=== PATIENT | female | born 2000 | race Caucasian/White ===

== ENCOUNTER → 2025-02-25 10:27 | Outpatient (BNVA) | payer MEDICAID, SELFPAY | PROVIDERS: Visit Provider Emergency Medicine | DX: R39.9 Unspecified symptoms and signs involving the genitourinary system (principal) | CPT/HCPCS: 81000; 87086 ==

== ENCOUNTER → 2025-03-27 19:06 | Outpatient (BNVA) | payer MEDICAID, SELFPAY | DX: R39.9 Unspecified symptoms and signs involving the genitourinary system (principal) | CPT/HCPCS: 81000; 87086 ==

== ENCOUNTER 2025-05-04 17:40 | Emergency (ER) | payer MEDICAID, SELFPAY ==
--- OUTSIDE RECORDS SUMMARY | 2025-05-04 03:20 | XMS_ITS ---
Author Organization [facility] Address [address] [place] [address] Care Team Providers Care Curtain Cutter Name Role Phone Taiwo Malonelie Primary Care Provider [phone] Roy, Bertha Unavailable [phone] Allergies Allergen (clinical drug ingredient) Drug/Non Drug Allergy documented on EMR Reaction Allergy Type Onset Date Status aripiprazole Abilify Unknown Drug Allergy Acti ve Lactose Intolerance Unknown Allergy Active REASON FOR VISIT Patient to clinic with home insurance agent. Complaint of pain to left great toe. Aide reports she has been eating a lot of pork pot stickers and [place] food. Medications Medication SIG (Take, Route, Frequency, Duration) Notes Start Date End Date Status Bacitracin 500 UNIT/GM Ointment 1 application to sore toe Externally twice a day till clear; Duration: 30 days 05/04/2025 07/03/2025 Active Cephalexin 500 MG Capsule 2 caps Orally twice a day; Duration: 10 05/04/2025 05/14/2025 Active traZODone HCl 50 MG Tablet 1 tablet at b edtime as needed Orally Once a day; Duration: 30 days Active Linzess 145 MCG Capsule [address] 30 minutes before the first meal of the day on an empty stomach Orally Once a day; Duration: 30 days Active Triamcinolone Acetonide 0.1 % Cream 1 application Externally twice a day; Duration: 30 days Active Diclofenac Sodium 1 % Gel 2-4 grams to a ffected areas Externally every 6 hours as needed for pain; Duration: 30 days Active Baclofen 5 MG Tablet 1 tablet as needed Orally Twice a day as needed for pain; Duration: 30 days Active Acetaminophen 500 MG Tablet 1 tablet as needed Orally every 4 hours; Duration: 30 days Active Deep Sea Nasal [place] 0.65 % Solution as directed Nasally as needed for nasal dryness or allergies; Duration: 30 days Active Tums 500 MG Tablet Chewable 2 tablets Orally Once a day as needed for heartburn; Duration: 30 days Active Milk of Magnesia 1200 MG/15ML Suspension 30 ml Orally daily as needed for constipation; Duration: 30 days Active Ketoconazole 2 % Cream 1 application Ext ernally daily as needed for rash; Duration: 30 days Active OLANZapine 10 MG Tablet 1 tablet Orally 4 times a day as needed for severe agitation; Duration: 30 days Active Ibuprofen 400 MG Tablet 1 tablet with fo od or milk as needed Orally Three times a day; Duration: 30 days Active Ex-Lax 15 MG Tablet Chewable 1 tablet as needed Orally Once a day; Duration: 30 days Active Benztropine Mesylate 1 MG Tablet 1 tablet Orally twice a day for EPS; Duration: 30 days Active Probiotic 1-250 BILLION-MG Capsule as directed Orally; Duration: 30 days can be OTC 04/24/2025 08/22/2025 Active Zolpidem Tartrate 5 MG Tablet 1 tablet at bedtime as needed for insomnia Orally Once a day Active Daily-Kristen - Tablet 1 tablet Orally Once a day; Duration: 30 days Active Cetirizine HCl 10 MG Tablet 1 tablet Orally Once a day; Duration: 30 days Active Ayden Carbonate 300 MG Tablet 2 tablets Orally twice a day; Duration: 30 days Active Haloperidol 10 MG Tablet 1 tablet Orally 3 times a day with meals; Duration: 30 days Active Fluticasone Propionate 50 MCG/ACT Suspension 1 spray in each nostril Nasally Twice a day; Duration: 30 days Active Famotidine 20 MG Tablet 1 tablet at bedt maximilian as needed Orally Once a day; Duration: 30 days Active Levothyroxine Sodium 75 MCG Tablet 1 tablet in the morning on an empty stomach Orally Once a day; Duration: 30 days Active Pantoprazole Sodium 40 MG Tablet Delayed Release 1 tablet 1/2 to 1 hour before morning meal Orally Once a day; Duration: 30 days Active QUEtiapine Fumarate 200 MG Tablet 1 tablet Orally Once a day; Duration: 30 days Active Polyethylene Glycol 3350 17 GM/SCOOP Powder 1 scoop Orally twice a day; Duration: 30 days Active Social History Tobacco Use: Social History Observation Description Date Details (start date - stop date) Never Smoker NA - NA Social History Tobacco Use: Social Info Question Answer Notes Tobacco Control (Standard) Tobacco use: Nonsmoker Vital Signs Temperature 97.7 degrees Fahrenheit 05/04/20 25 Blood pressure systolic 128 mm Hg 05/04/20 25 Blood pressure diastolic 84 mm Hg 025 Heart Rate 105 /min 05/04/2025 Respiratory Rate 20 /min 05/04/2025 Height 67 in 05/04/2025 Weight 261 lbs 05/04/2025 BMI 40.87 kg/m2 05/04/2025 Oximetry 99 % 05/04/2025 Height-cm 170.18 cm 05/04/2025 Weight-kg 118.39 kg 05/04/2025 Encounters Encounter Location Date Provider Diagnosis [facility] Office [address] [place] [address] 05/04/2025 [facility] Paronychia of great toe L03.039 Assessments Encounter Date Diagnosis (ICD Code) Assessment Notes Treatment Notes Treatment Clinical Notes Section Notes 05/04/2025 Paronychia of great toe (ICD-10 - L03.039) cephalexin bacitracin 05/04/2025 Other Questions asked and answered; discharged to home. Plan Of Treatment Medication Medication Name Sig Start Date Stop Date Notes Bacitracin 500 UNIT/GM Ointment 1 application to sore toe Externally twice a day till clear; Duration: 30 days 05/04/2025 07/03/2025 Cephalexin 500 MG Capsule 2 caps Orally twice a day; Duration: 10 05/04/2025 05/14/2025 Treatment Notes Assessment Notes Paronychia of great toe cephalexin bacitracin Other Questions asked and answered; discharged to home. Next Appt Details Follow Up: 1 Week, Reason: nini winchester Provider Name:Winter alvarez, 05/08/2025 09:00:00 AM, [address], [place], [address], Provider Name:Arsen Zhou, 05/15/2025 09:20:00 AM, [address], [place], [address], History and Physical Notes * HPI (History of Present Illness) Category Sub-Category Detail Notes Category Not es Provider Note patient is an alert 24 year old female known to practice and here with home care worker complains of soreness left great toe discussed with patient and caregiver; nail infection will e script cephalexin as well as topical bacitracin recheck with rachele malone next week Examination Category Sub-Category Detail Notes Category Not es General Examination GENERAL APPEARANCE: alert, w ell hydrated, in no distress, converses well HEAD: normocephalic, atrau matic EYES: PERRL; normal conjun ctiva EARS: ... NECK/THYROID: neck supple, full ra nge of motion, no JVD, without thyromegaly or masses HEART: Regular rate and rhy thm, S1 S2 normal LUNGS: clear to auscultatio n bilaterally, no wheezes, rales, or rhonchi NEUROLOGIC: alert and oriented, cerebellar function normal, cognitive exam grossly normal, gait normal SKIN: warm and dry EXTREMITIES: left great toe with increased redness; trace edema; at lateral nail edge; no exudate PSYCH: alert, oriented, cog nitive function intact, cooperative with exam, good eye contact, mood/affect full range, speech clear Progress Notes * CHALINO SHAHEDOB:[birth year] (24 yo F)Acc No.[id number]:05/04/2025 Patient: SRIRAM RDZ Provider: Andrew Roy SENIOR FUNCTIONAL ANALYST :2000 A ge:24 Y S ex:Female Date:05/04/2025 Address:[address] [place], [place] [id number] Pcp:Winter Malone Check In:08:56 AM CSTCheck O ut:09:37 AM MANUFACTURING ENGINEERING TECHNICIAN Subjective: * Chief Complaints: * P atient to clinic with home insurance agent. Complaint of pain to left great toe. Aide reports she has been eating a lot of pork pot stickers and [place] food. * HPI: P rico Note: patient is an alert 24 year old female known to practice and here with home care worker complains of soreness left great toe discussed with patient and caregiver; nail infection will e script cephalexin as well as topical bacitracin recheck with rachele malone next week. * ROS: G eneral - Multi System: Integumentary R EPORTS left toe red; sore. * Medical History: No Medical History Documented Medical History Verified * Surgical History: cholecystectomy Surgical History verified. * Hospitalization/Major Diagno stic Procedure: Denies Past Hospitalization. * Family History: F ather: unknown. M other: unknown. F amily History Verified.. * Social History: T obacco Use: T obacco Control (Standard) T obacco use: N onsmoker S ocial History Verified. * Medications: T akingZolpidem Tartrate 5 MG Tablet 1 tablet at bedtime as needed for insomnia Orally Once a day OLANZapine 10 MG Tablet 1 tablet Orally 4 times a day as needed for severe agitation Milk of Magnesia 1200 MG/15ML Suspension 30 ml Orally daily as needed for constipation Ketoconazole 2 % Cream 1 application Externally daily as needed for rash Ibuprofen 400 MG Tablet 1 tablet with food or milk as needed Orally Three times a day Ex-Lax 15 MG Tablet Chewable 1 tablet as needed Orally Once a day Diclofenac Sodium 1 % Gel 2-4 grams to affected areas Externally every 6 hours as needed for pain Deep Sea Nasal [place] 0.65 % Solution as directed Nasally as needed for nasal dryness or allergies Tums 500 MG Tablet Chewable 2 tablets Orally Once a day as needed for heartburn Baclofen 5 MG Tablet 1 tablet as needed Orally Twice a day as needed for pain Acetaminophen 500 MG Tablet 1 tablet as needed Orally every 4 hours Linzess 145 MCG Capsule 1 capsule at least 30 minutes before the first meal of the day on an empty stomach Orally Once a day Triamcinolone Acetonide 0.1 % Cream 1 application Externally twice a day traZODone HCl 50 MG Tablet 1 tablet at bedtime as needed Orally Once a day QUEtiapine Fumarate 200 MG Tablet 1 tablet Orally Once a day Polyethylene Glycol 3350 17 GM/SCOOP Powder 1 scoop Orally twice a day Pantoprazole Sodium 40 MG Tablet Delayed Release 1 tablet 1/2 to 1 hour before morning meal Orally Once a day Ayden Carbonate 300 MG Tablet 2 tablets Orally twice a day Famotidine 20 MG Tablet 1 tablet at bedtime as needed Orally Once a day Levothyroxine Sodium 75 MCG Tablet 1 tablet in the morning on an empty stomach Orally Once a day Haloperidol 10 MG Tablet 1 tablet Orally 3 times a day with meals Fluticasone Propionate 50 MCG/ACT Suspension 1 spray in each nostril Nasally Twice a day Daily-Kristen - Tablet 1 tablet Orally Once a day Cetirizine HCl 10 MG Tablet 1 tablet Orally Once a day Benztropine Mesylate 1 MG Tablet 1 tablet Orally twice a day for EPS Probiotic 1-250 BILLION-MG Capsule as directed Orally can be OTC, stop date 08/22/2025Taking Zolpidem Tartrate 5 MG Tablet 1 tablet at bedtime as needed for insomnia Orally Once a day Taking OLANZapine 10 MG Tablet 1 tablet Orally 4 times a day as needed for severe agitation Taking Milk of Magnesia 1200 MG/15ML Suspension 30 ml Orally daily as needed for constipation Taking Ketoconazole 2 % Cream 1 application Externally daily as needed for rash Taking Ibuprofen 400 MG Tablet 1 tablet with food or milk as needed Orally Three times a day Taking Ex-Lax 15 MG Tablet Chewable 1 tablet as needed Orally Once a day Taking Diclofenac Sodium 1 % Gel 2-4 grams to affected areas Externally every 6 hours as needed for pain Taking Deep Sea Nasal [place] 0.65 % Solution as directed Nasally as needed for nasal dryness or allergies Taking Tums 500 MG Tablet Chewable 2 tablets Orally Once a day as needed for heartburn Taking Baclofen 5 MG Tablet 1 tablet as needed Orally Twice a day as needed for pain Taking Acetaminophen 500 MG Tablet 1 tablet as needed Orally every 4 hours Taking Linzess 145 MCG Capsule 1 capsule at least 30 minutes before the first meal of the day on an empty stomach Orally Once a day Taking Triamcinolone Acetonide 0.1 % Cream 1 application Externally twice a day Taking traZODone HCl 50 MG Tablet 1 tablet at bedtime as needed Orally Once a day Taking QUEtiapine Fumarate 200 MG Tablet 1 tablet Orally Once a day Taking Polyethylene Glycol 3350 17 GM/SCOOP Powder 1 scoop Orally twice a day Taking Pantoprazole Sodium 40 MG Tablet Delayed Release 1 tablet 1/2 to 1 hour before morning meal Orally Once a day Taking Ayden Carbonate 300 MG Tablet 2 tablets Orally twice a day Taking Famotidine 20 MG Tablet 1 tablet at bedtime as needed Orally Once a day Taking Levothyroxine Sodium 75 MCG Tablet 1 tablet in the morning on an empty stomach Orally Once a day Taking Haloperidol 10 MG Tablet 1 tablet Orally 3 times a day with meals Taking Fluticasone Propionate 50 MCG/ACT Suspension 1 spray in each nostril Nasally Twice a day Taking Daily-Kristen - Tablet 1 tablet Orally Once a day Taking Cetirizine HCl 10 MG Tablet 1 tablet Orally Once a day Taking Benztropine Mesylate 1 MG Tablet 1 tablet Orally twice a day for EPS Taking Probiotic 1-250 BILLION-MG Capsule as directed Orally can be OTC, stop date 08/22/2025 * Allergies: A bilifyLactose IntoleranceyesAllergies Verified. Objective: * Vitals: H t: 67 in, Wt:261lbs, Wt-k.39 kg, BMI:40.87Index, Temp:97.7F, BP:128/84mm Hg, HR:105/min, RR:20/min, Oxygen sat %:99%, O2 Source: RA, Pain scale: 6 1-10, Ht- cm: 170.18 cm. * Examination: G eneral Examination: GENERAL APPEARANCE: a lert, well hydrated, in no distress, converses well. HEAD: n ormocephalic, atraumatic. EYES: P ERRL; normal conjunctiva. EARS: . ... NECK/THYROID: n michele supple, full range of motion, no JVD, without thyromegaly or masses. SKIN: w arm and dry. HEART: R egular rate and rhythm, S1 S2 normal. LUNGS: c lear to auscultation bilaterally, no wheezes, rales, or rhonchi. EXTREMITIES: l eft great toe with increased redness; trace edema; at lateral nail edge; no exudate. NEUROLOGIC: a lert and oriented, cerebellar function normal, cognitive exam grossly normal, gait normal. PSYCH: a lert, oriented, cognitive function intact, cooperative with exam, good eye contact, mood/affect full range, speech clear. Assessment: * Assessment: 1. P aronychia of great toe - L03.039 (Primary) Plan: * Treatment: 2. O thers Notes: Questions asked and answered; discharged to home. * Procedure Codes: 3 079F DIAST BP 80-89 MM [id number] SYST BP LT 130 MM HG * Preventive Medicine: Screenings: C ERVICAL CANCER SCREENING: Cancer screening cervical (age 21-64)?declines per caregiver, 04/26/25 V ACCINATIONS: Influenza vaccinations: 1 06/18/2024 * Follow Up: 1 Week (Reason: recheck) Billing Information: * Visit Code: 27070 Office Visit, Est Pt., Level 3. * Procedure Codes: 3079F DIAST BP 80-89 MM HG. 3074F SYST BP LT 130 MM HG. * FACTURING ENGINEERING TECHNICIAN Sign off status: Completed true * Provider: Andrew Roy SENIOR FUNCTIONAL ANALYST Date: 07/04/2024 Generated for Adilia ventura/Gertrudis/Xiomysmitting on: 07/04/2024 05:46 PM MANUFACTURING ENGINEERING TECHNICIAN
[2025-05-04 17:46] VITALS: BMI 39.9
--- OUTSIDE RECORDS SUMMARY | 2025-05-04 17:47 | XMS_ITS | Patient Health Record ---
Author Organization [facility] Address [address] [place] [address] Care Team Providers Care Wirer Passenger Car Name Role Phone PCP, LAPSED Primary Care Provider Unavailabl e Reason For Referral No Information Medications Medication SIG (Take, Route, Fr equency, Duration) Notes Start Date End Date Status Narka Carbonate Ac tive MiraLax Active Omeprazole Active CeleXA Active ChlorproMAZINE Activ e Depo-Provera Active Flonase Active Intuniv Active Levothyroxine Sodium Active Linzess Active Plan Of Treatment No Information Insurance Providers Payer Name Payer Address Payer Phone Subscriber Number Group Number Insured Name Patient Relationship to Insured Coverage Start Date Coverage End Date [place] [address] [place] [address] [phone] [id number] Chika Roy Self - patient is the insured
--- OUTSIDE RECORDS SUMMARY | 2025-05-04 17:47 | XMS_ITS | Patient Health Record ---
Author Organization [facility] Address [address] [place] [address] Care Team Providers Care Tractor Distributor Name Role Phone Winter Malone Primary Care Provider Bertha Roy Unavailable [phone] Allergies Allergen (clinical drug ingredient) Drug/Non Drug Allergy documented on EMR Reaction Allergy Type Onset Date Status aripiprazole Abilify Unknown Drug Allergy Acti ve Lactose Intolerance Unknown Allergy Active Results Component Value Reference Range Flag Notes Thyroid Stimulating Hormone (TSH) 25626 Reviewed date:03/16/2025 08:49:35 AM Interpretation: Performing Lab: Notes/Report: Diagnosis Description: Hypothyroidism, unspecified TSH .924 .358-3.740 MlU/ML [place] (B) 08430 Reviewed date:03/16/2025 08:50:23 AM Interpretation: Performing Lab: Notes/Report: Diagnosis Description: Other terminal worker (current) drug therapy [place] .43 .60-1.20 MMOL/L LOW A value o f greater than 1.50 is considered critical 12 hrs after dose. Lipid Panel Reflex DLDL 0552 9, 57342 Reviewed date:03/16/2025 08:50:04 AM Interpretation: Performing Lab: Notes/Report: Diagnosis Description: Other terminal worker (current) drug therapy Trig 357 NA Classification Guidelines:Triglycerides Adults: >20yrs Desirable <150 Borderline High 150-199 High 200-499 Very high >=500 Children: Male 0-4 yr 22-99 5-9 yr 30-101 10-14 yr 32-125 15-19 yr 37-148 Children: Female 0-4 yr 34-112 5-9 yr 32-105 10-14 yr 37-131 15-19 yr 39-132 Chol 202 <=200 MG/DL HI HDL 36 39-96 MG/DL LOW Reference Ranges:HDL Male: 5-9y 38-75 10-14y 37-74 15-19y 30-63 >=20y 40-59 Female: 5-9y 36-73 10-14y 37-70 15-19y 35-74 >=20y 40-59 CH/HDL 5.6 0.0-4.9 RATIO HI LDL 94 0-130 MG/DL LDL result is inaccurate , if Trig is >400 mg/dl. See DLDL result. Hemoglobin A1c 04997 Reviewed date:03/16/2025 08:49:57 AM Interpretation: Performing Lab: Notes/Report: Diagnosis Description: Other longterm (current) drug therapy Hgb A1c 4.7 3.8-6.4 % Interpretation Of Hgb A1c: 4.5-6.2 % nondiabetics. >7.0 % diabetics. EAG 88 NA Estimated Aver age Glucose(EAG). Comprehensive Metabolic Pane l (CMP) 07271 Reviewed date:03/16/2025 08:50:29 AM Interpretation: Performing Lab: Notes/Report: Diagnosis Description: Other terminal worker (current) drug therapy Glucose Serum 59 71-110 MG/DL LOW Testing p erformed at [facility], [address] [place] [address] [place] [address]. CLIA ID#: [id number] BUN 6 7-21 MG/DL LOW Creat .43 .51-1.17 MG/DL LOW H-bmnpzk-p-benzoquinone imine (NAPQI) is a metabolite of acetaminophen, NAPQI concentrations of apparoximately 10 mg/L correlation to toxic levels of acetaminophen demonstrates a greater than or equil to 10% change in results. NAPQI concentrations greater than this may lead to falsely depressed results for patient samples. Use of this assay is not recommended for patients undergoing treatment with phenindione, due to the potential for falsely depressed results. GFR 138.1 NA Calculation pe rformed from GFR calculator provided by the [employer]. Glomerular Filtration rate(GRF) is the best overall index of kidney function. Normal GFR varies according to age,sex, body size, and declines with age. The [employer] recommends using the CKD-EPI Creatinine Equation(2020) to estimate GFR. BUN/Creat Ratio 14.0 12.0-20.0 % Total Protein 7.2 5.8-8.0 G/DL Albumin 4.7 3.2-4.8 G/DL Globulin 2.5 2.3-3.5 G/DL Alb/Glob 1.9 0.8-2.2 Calcium 9.5 8.7-10.4 MG/DL Sodium 139 136-145 MMOL/L Potassium 4.2 3.5-5.1 MMOL/L Chloride 103 98-107 MMOL/L CO2 23.7 20.0-31.0 MMOL/L Anion Gap 16 5-15 HI Alk Phos 66 46-116 Bili Total .2 .3-1.2 MG/DL LOW Use of this assay is not recommended for patients undergoing treatment with eltrombopag due to the potential for falsely elevated results. AST/SGOT 25 15-37 UNIT/L ALT/SGPT 41 12-78 UNIT/L Osmo Serum,Calculated 283 280-300 MOSM/KG CBC w\ Auto Diff 19272 Reviewed date:03/16/2025 08:50:12 AM Interpretation: Performing Lab: Notes/Report: Diagnosis Description: Other longterm (current) drug therapy WBC 8.4 4.5-11.0 X10'3 RBC 5.06 4.00-5.20 X10'6 Hgb 14.1 12.0-16.0 G/DL Hct 43.5 36.0-46.0 % MCV 86.0 80.0-100.0 FL MCH 27.9 27.0-31.0 PG MCHC 32.4 31.0-37.0 G/DL Platelet 431 150-400 X10'3 HI RDW-SD 42.1 35.0-49.0 FL RDW-CV 13.5 12.2-15.6 % MPV 8.9 9.2-12.0 FL LOW Neutro Auto% 67.9 40.0-70.0 % Lymph Auto% 22.0 22.0-44.0 % [place] Auto% 7.1 3.0-7.0 % HI Eos Auto% 2.0 2.0-4.0 % Baso Auto% 0.5 0.0-1.0 % Imm Gran% .5 .0-.4 % HI Neutro Abs 5.70 .80-7.70 Absolute Neutrophil Count 5700 NA Lymph Abs 1.85 .10-4.10 [place] Abs .60 .20-1.00 Eos Abs .17 .00-.40 Baso Abs .04 .00-.20 Imm Gran Abs .04 .00-.10 NRBC# .00 .00-.20 X10'3 NRBC% .00 .00-.20 /100 int act WBC's Reason For Referral Reason Hematochezia Diagnosis 1 GERD (gastroesophage al reflux disease) (K21.9) Referring Provider First Name Winter Referring Provider Last Name Kira Referring Provider Speciality Nurse Pavel shell Referred Organization [facility] Referred Provider Didier Coronel Referred Address [address] [place] [phone], Referral Priority Routine Reason Hematochezia Diagnosis 1 Hematochezia (K92.1) Referral Organization [facility] [place] [facility] Referring Provider First Name Winter Referring Provider Last Name Kira Referring Provider Speciality Nurse Pavel shell Referred Provider DIDIER CORONEL Referred Provider Specialty Internal Med icine General Notes Fransisca Quiñones 04/26 11:41:25 AM REGISTRATION CLERK > faxed Referral Priority Routine Medications Medication SIG (Take, Route, Frequency, Duration) Notes Start Date End Date Status Diclofenac Sodium 1 % Gel 2-4 grams to a ffected areas Externally every 6 hours as needed for pain; Duration: 30 days Active Baclofen 5 MG Tablet 1 tablet as needed Orally Twice a day as needed for pain; Duration: 30 days Active Acetaminophen 500 MG Tablet 1 tablet as needed Orally every 4 hours; Duration: 30 days Active Deep Sea Nasal [place] 0.65 % Solution as directed Nasally as needed for nasal dryness or allergies; Duration: 30 days Active Tums 500 MG Tablet Chewable 2 tablets Orally Once a day as needed for heartburn; Duration: 30 days Active traZODone HCl 50 MG Tablet 1 [...] twice a day; Duration: 30 days Active Polyethylene Glycol 3350 17 GM/SCOOP Powder 1 scoop Orally twice a day; Duration: 30 days Active Bacitracin 500 UNIT/GM Ointment 1 application to sore toe Externally twice a day till clear; Duration: 30 days 05/04/2025 07/03/2025 Active Pantoprazole Sodium 40 MG Tablet Delayed Release 1 tablet 1/2 to 1 hour before morning meal Orally Once a day; Duration: 30 days Active [place] Carbonate 300 MG Tablet 2 tablets Orally twice a day; Duration: 30 days Active Cephalexin 500 MG Capsule 2 caps Orally twice a day; Duration: 05/04/2025 05/14/2025 Active Haloperidol 10 MG Tablet 1 tablet [...] Once a day; Duration: 30 days Active Milk of Magnesia 1200 MG/15ML Suspension 30 ml Orally daily as needed for constipation; Duration: 30 days Active Benztropine Mesylate 1 MG Tablet 1 tablet Orally twice a day for EPS; Duration: 30 days Active Probiotic 1-250 BILLION-MG Capsule as directed Orally; Duration: 30 days can be OTC 04/24/2025 08/22/2025 Active Ketoconazole 2 % Cream 1 application Ext ernally daily as needed for rash; Duration: 30 days Active Zolpidem Tartrate 5 MG Tablet 1 tablet at bedtime as needed for insomnia Orally Once a day Active Daily-Kristen - Tablet 1 tablet Orally Once a day; Duration: 30 days Active OLANZapine 10 MG Tablet 1 tablet Orally 4 times a day as needed for severe agitation; Duration: 30 days Active Cetirizine HCl 10 MG Tablet 1 tablet Orally Once a day; Duration: 30 days Active Ibuprofen 400 MG Tablet 1 tablet with fo od or milk as needed Orally Three times a day; Duration: 30 days Active Ex-Lax 15 MG Tablet Chewable 1 tablet as needed Orally Once a day; Duration: 30 days Active Immunizations Vaccine Route Administration Date Status Comme nts Flucelvax Trivalent, Syringe 0.5 mL, PF IM Intramuscular 04/18/2025 Administered Patient tolerat ed well. Social History Tobacco Use: Social History Observation Description Date Details (start date - stop date) Never Smoker NA - NA Social History Depression Screening Social Info Question Answer Notes PHQ-9 Little interest or pleasure in doing thin gs Not at all Feeling down, depressed, or hopeless Not at all Trouble falling or staying asleep, or sleeping t oo much Not at all Feeling tired or having little energy Not at all Poor appetite or overeating Not at all Feeling bad about yourself, or that you are a failure, or have let yourself or your family down Not at all Trouble concentrating on thi ngs, such as reading the newspaper or watching television Not at all Moving or speaking so slowly that other people could have noticed. Or the opposite ? being so fidgety or restless that you have been moving around a lot more than usual Not at all Thoughts that you would be b tk off , or of hurting yourself in some way Not at all Total Score 0 Drug/Alcohol: Social Info Question Answer Notes AUDIT-C (Standard) Did you have a drink containing alcohol in the past year? No Points 0 Interpretation Negative Tobacco Use: Social Info Question Answer Notes Tobacco Control (Standard) Tobacco use: Nonsmoker Problems Problem Type SNOMED Code ICD Code Onset Dates Problem Status W/U Status Risk Notes Problem Oppositional defiant disorder (60152957) Oppositional defiant disorder (F91.3) Active confirmed Problem Bipolar 1 disorder (868494945) Bipolar 1 disorder (F31.9) Active confirmed Problem Posttraumatic stress disorder (77286721) Post traumatic stress disorder (PTSD) (F43.10) Active confirmed Problem Attention deficit hyperactivity disorder (364487739) ADHD (attention deficit hyperactivity disorder) (F90.9) Active confirmed Problem Constipation (27627047) Constipation (K59.00) Active confirmed Problem Acquired hypothyroidism (333932892) Acquired hypothyroidism (E03.9) Active confirmed Problem Pervasive developmental disorder (disorder) (05910819) Autism disorder (F84.0) Active confirmed Problem Seasonal allergy (515148822) Seasonal allergies (J30.2) Active confirmed Problem Gastroesophageal reflux disease (243637806) GERD (gastroesophageal reflux disease) (K21.9) Active confirmed Problem Intellectual disability (156034921) Intellectual disability (F79) Active confirmed Vital Signs Heart Rate 105 /min 05/04/2025 Temperature 97.7 degrees Fahrenheit 05/04/2025 Respiratory Rate 20 /min 05/04/2025 Height-cm 170.18 cm 05/04/2025 Oximetry 99 % 05/04/2025 Blood pressure diastolic 84 mm Hg 05/04/2025 Weight-kg 118.39 kg 05/04/2025 Height 67 in 05/04/2025 Blood pressure systolic 128 mm Hg 05/04/2025 Weight 261 lbs 05/04/2025 BMI 40.87 kg/m2 05/04/2025 Encounters Encounter Location Date Provider Diagnosis [facility] Office [address] [address] 04/26/2025 Winter Malone H/O hemorrhoids Z87. 19 ; Hematochezia K92.1 and Hard stool R19.5 [facility] Office [address] [address] 03/06/2025 Winter Malone Acquired hypothyroidism E03.9 ; Bipolar 1 disorder F31.9 ; Intellectual disability F79 ; Autism disorder F84.0 ; Post traumatic stress disorder (PTSD) F43.10 ; ADHD (attention deficit hyperactivity disorder) F90.9 ; Oppositional defiant disorder F91.3 ; GERD (gastroesophageal reflux disease) K21.9 ; Seasonal allergies J30.2 ; Constipation K59.00 ; High risk medication use Z79.899 and Depression screen Z13.31 [facility] Office [address] [address] 04/18/2025 Winter Malone Encounter for immunization Z23 and Encounter for administration of vaccine Z23 [facility] Office [address] [address] 05/04/2025 [facility] Paronychia of great toe L03.039 [facility] [address] [address] 04/24/2025 Winter Malone [address] [address] 03/06/2025 Winter Malone Assessments Encounter Date Diagnosis (ICD Code) Assessment Notes Treatment Notes Treatment Clinical Notes Section Notes 05/04/2025 Paronychia of great toe (ICD-10 - L03.039) cephalexin bacitracin 04/26/2025 Hematochezia (ICD-10 - K92.1) 04/26/2025 H/O hemorrhoids (ICD-10 - Z87.19) 03/06/2025 Bipolar 1 disorder (ICD-10 - F31.9) Stable, waiting for apt with [facility]. 04/18/2025 Encounter for immunization (ICD-10 - Z23) Immunization supplied by [employer]. 03/06/2025 Acquired hypothyroidism (ICD-10 - E03.9) 04/18/2025 Encounter for administration of vaccine (ICD-10 - Z23) 03/06/2025 Intellectual disability (ICD-10 - F79) Stable, waiting for apt with [facility]. 04/26/2025 Hard stool (ICD-10 - R19.5) Start stool softner once daily for hard stools. 03/06/2025 Autism disorder (ICD-10 - F84.0) Stable, waiting for apt with [facility]. 03/06/2025 Post traumatic stress disorder (PTSD) (ICD-10 - F43.10) Stable, waiting for apt with [facility]. 03/06/2025 ADHD (attention deficit hyperactivity disorder) (ICD-10 - F90.9) Stable, waiting for apt with [facility]. 03/06/2025 Oppositional defiant disorder (ICD-10 - F91.3) Stable, waiting for apt with [facility]. 03/06/2025 GERD (gastroesophageal reflux disease) (ICD-10 - K21.9) Stable. 03/06/2025 Seasonal allergies (ICD-10 - J30.2) Continue same. 03/06/2025 Constipation (ICD-10 - K59.00) Continue same. 03/06/2025 High risk medication use (ICD-10 - Z79.899) 03/06/2025 Depression screen (ICD-10 - Z13.31) 03/06/2025 Other Venipuncture performed. Left arm. 2 attempts. Pt tolerated well, bleeding controlled with light dressing. Unable to get blood, will have SPounders attempt to get blood. 04/18/2025 Other Give Flu vaccine as directed per provider 05/04/2025 Other Questions asked and answered; discharged to home. Plan Of Treatment Next Appt Details Provider Name:Winter alvarez, 05/08/2025 09:00:00 AM, [address], [place], [address], Provider Name:Didier Coronel, 05/15/2025 09:20:00 AM, [address], [place], [address], Insurance Providers Payer Name Payer Address Payer Phone Subscriber Number Group Number Insured Name Patient Relationship to Insured Coverage Start Date Coverage End Date Home [facility] Plan Medicaid Replacement [address] [facility] [place], [place] [phone] [id number] SRIRAM SHAH Self - patient is the insured Medical (General) History Surgical History Surgery Date(Month/Year) cholecystectomy
[2025-05-04 17:49] VITALS: BP 130/81; PULSE 121; RESP 18; TEMP 37.2; O2SAT 95
--- NOTE | 2025-05-04 17:54 | ED.C_ITS ---
Documented by User: DIMAS Liz 05/04/25 20:40 HPI - Psych 2 General: Chief Complaint: Psychiatric Symptoms Stated Complaint: SI thoughts anxiety shaking Time Seen by Provider: 05/04/25 17:44 History of Present Illness: Patient presents to the emergency room due to suicide thoughts. This started probably at 4:30 PM today. Patient is unsure what brought on. She states she has previous assault charge, and did not want to harm someone else or herself. She went to the staff of the home she resides in for help. Her plan was to cut herself with a razor blade. She gave the razor blade to staff. She is calm at bedside, and states she has suicidal thoughts and ideas and needs to be admitted to psychiatric facility. She has been in her snf since February 2025. Her last psychiatric admission was in [place] in November 2024. Selected Entries 05/04/25 17:46 ED Triage Comment PT PRESENTS WITH A NXIETY AND SI. PAT IENT STATES ITS B EEN HAPPENING FOR THE LAST COUPLE OF HOURS AND INCREAS ING MY THOUGHTS OF SELF HARM. PATIE NT STATES HX OF [place] TH ANXIETY AND SI. PATIENT HAS NO SP ECIFIC PLAN. PATEN T AIRWAY, UNLABORE D RESPIRATIONS, AN D APPROPRIATE COLO R. Associated symptoms: Reports depression and suicidal ideation; Deny auditory hallucinations Related Data Previous Rx's ?Medication ?Instructions ?Recorded metronidazole 500 mg tablet 500 mg PO Q8H 7 days #21 t abs 02/25/25 sulfamethoxazole 800 1 tab PO BID 5 days #10 tabs 03/27/25 mg-trimethoprim 160 mg tablet (Bactrim DS) Allergies Allergy/AdvReac Type Severity Reaction Status Date / Time aripiprazole (From [facility]) Allergy Mild Unknown Verified 03/27/25 18:53 Review of Systems 2 Const: Denies: fever(s), chills or body aches Card: Denies: chest pain Resp: Denies: dyspnea or wheezing GI: Reports: abdominal pain (pressure); Denies: nausea, vomiting or diarrhea : Reports: dysuria, urinary urgency and pelvic pain; Denies: flank pain, urinary frequency, oliguria, urinary incontinence, hematuria, vaginal odor or vaginal bleeding Skin/Breast: Denies: rash Neuro: Denies: headache(s) Psych: Reports: anxiety, depression, mood swings, panic attacks, hopelessness and suicidal ideation; Denies: auditory hallucinations or tactile hallucinations PFSH ED 2 PFSH: Medical History (Updated 05/04/25 @ 20:40 by DIMAS Liz) Psychiatric care Social History Smoking and tobacco/nicotine status: never used tobacco/nicotine Physical Exam 2 Const: COMMON NORMALS: no acute distress, patient oriented x3 and healthy appearing GENERAL APPEARANCE: cooperative and comfortable HENMT: COMMON NORMALS: normocephalic, external ears normal and Normal external nose present HEAD & SCALP: normocephalic NOSE: Normal external nose present EXTERNAL EAR: Yes external ears normal Neck/C-Spine: COMMON NORMALS: full ROM, no lymphadenopathy, supple and no meningeal signs Chest: COMMONS NORMALS: normal inspection of the chest and normal palpation of entire chest wall Resp: COMMON NORMALS: normal respiratory effort and No use of accessory muscles EFFORT & INSPECTION: Yes able to speak in complete sentences, Yes symmetric chest movement, No Actively coughing and No audible wheezes Cardio: COMMON NORMALS: regular rate and regular rhythm RATE: regular rate RHYTHM: regular rhythm : COMMON NORMALS: Yes no CVA tenderness BLADDER/KIDNEY EXAM: Yes no CVA tenderness Back/Pelvis: COMMON NORMALS: no CVA tenderness Extremity: NARRATIVE EXTREMITY EXAM: Left great toe with medial redness along nailbed, and localized redness distal medial phalanx Neuro: COMMON NORMALS: patient oriented x3, moves all extremities and gait normal MENINGEAL SIGNS: Yes no meningeal signs Psych: COMMON NORMALS: speech normal SPEECH: Yes normal speech Course 2 Vital Signs: Vital signs: Vital Signs Temperature 99.0 F 05/04/25 17:49 Pulse Rate 121 H 05/04/25 17:49 Respiratory Rate 18 05/04/25 17:49 Blood Pressure 130/81 05/04/25 17:49 Pulse Oximetry 95 05/04/25 17:49 Oxygen Delivery Me thod Room Air 05/04/25 17:49 MDM - Psych Medical Decision Making Patient is a 24-year-old female that comes to the ED with staff from the home where she resides, with hopelessness, wanting to harm herself by cutting herself. She would like a voluntary admission to the psychiatric unit. Routine testing is in range. Will contact Dr. Esposito for admission. Medical Records I reviewed the patient's medical records. Lab Data I reviewed the patient's lab results. 05/04/25 18:21 05/04/25 18:21 Radiology Impressions Toe X-Ray 05/04/25 18:04 IMPRESSION: No acute osseous abnormality. Laboratory Results WBC 9.34 10^3/uL (3.29-11.43) 05/04/25 18:21 RBC 4.58 10^6/uL (3.85-5.65) 05/04/25 18:21 Hgb 12.80 g/dL (11.27-16.99) 05/04/25 18:21 Hct 38.4 % (36-47) 05/04/25 18:21 MCV 83.8 fl (85-98) L 05/04/25 18:21 MCH 27.9 pg (27-33) 05/04/25 18:21 MCHC 33.3 g/dL (30-55) 05/04/25 18:21 RDW 13.0 % (12.1-15.1) 05/04/25 18:21 Plt Count 396 10^3/cmm (157-399) 05/04/25 18:21 MPV 8.4 fL (7.4-10.4) 05/04/25 18:21 Neut % (Auto) 63.2 % 05/04/25 18:21 Lymph % (Auto) 27.8 % 05/04/25 18:21 [place] % (Auto) 6.6 % 05/04/25 18:21 Eos % (Auto) 1.7 % 05/04/25 18:21 Baso % (Auto) 0.4 % 05/04/25 18:21 Neut # (Auto) 5.89 10^3/uL (1.8-7.7) 05/04/25 18:21 Lymph # (Auto) 2.6 10^3/uL (0.8-4.8) 05/04/25 18:21 [place] # (Auto) 0.6 10^3/uL (0.2-0.9) 05/04/25 18:21 Eos # (Auto) 0.2 10^3/uL (0.0-0.8) 05/04/25 18:21 Baso # (Auto) 0.0 10^3/uL (0.0-0.1) 05/04/25 18:21 Nucleated RBC % (auto) 0 % 05/04/25 18:21 Nucleated RBCs # 0.0 /100WBC 05/04/25 18:21 Sodium 139 mmol/L (136-145) 05/04/25 18:21 Potassium 3.8 mmol/L (3.5-5.1) 05/04/25 18:21 Chloride 107 mmol/L (98-107) 05/04/25 18:21 Carbon Dioxide 19 mmol/L (22-29) L 05/04/25 18:21 Anion Gap 16.8 (5-19) 05/04/25 18:21 BUN 6 mg/dL (6-20) 05/04/25 18:21 Creatinine 0.4 mg/dL (0.5-0.9) L 05/04/25 18:21 GFR Calculation 194.5 mL/min (90-130) H 05/04/25 18:21 Glucose 116 mg/dL (65-115) H 05/04/25 18:21 Calculated Osmolality 287 mOsm/kg (285-295) 05/04/25 18:21 Calcium 9.4 mg/dL (8.5-10.5) 05/04/25 18:21 Total Bilirubin 0.2 mg/dL (0.15-1.2) 05/04/25 18:21 AST 17 U/L (0-32) 05/04/25 18:21 ALT 17 U/L (0-33) 05/04/25 18:21 Alkaline Phosphatase 68 U/L (35-105) 05/04/25 18:21 Total Protein 7.7 g/dL (6.6-8.7) 05/04/25 18:21 Albumin 4.4 g/dL (3.5-5.2) 05/04/25 18:21 Globulin 3.3 g/dL (1.3-4.6) 05/04/25 18:21 TSH 2.52 uIU/mL (0.27-4.20) 05/04/25 18:21 HCG, Qual Negative (Negative) 05/04/25 18:32 Urine Color Yellow (Yellow) 05/04/25 18:32 Urine Appearance Clear (CLEAR) 05/04/25 18:32 Urine pH 7.0 (5-7) 05/04/25 18:32 Ur Specific [place] 1.005 (1.005-1.030) 05/04/25 18:32 Urine Protein Negative (Negative) 05/04/25 18:32 Urine Glucose (UA) Negative (Normal) 05/04/25 18:32 Urine Ketones Negative (Negative) 05/04/25 18:32 Urine Blood Negative (Negative) 05/04/25 18:32 Urine Nitrate Negative (Negative) 05/04/25 18:32 Urine Bilirubin Negative (Negative) 05/04/25 18:32 Urine Urobilinogen 0.2 mg/dL (Negative) 05/04/25 18:32 Ur Leukocyte Esterase Negative (Negative) 05/04/25 18:32 Urine RBC 0-2 /hpf (0-2) 05/04/25 18:32 Urine WBC 0-5 /hpf (0-5) 05/04/25 18:32 Ur Squamous Epith Cells 0-5 /hpf (0-5) 05/04/25 18:32 Amorphous Sediment Not Reportable 05/04/25 18:32 Urine Bacteria None seen /hpf (NONE) 05/04/25 18:32 Hyaline Casts 0-4 /lpf H 05/04/25 18:32 Salicylates < 0.3 mg/dL (3-10) L 05/04/25 18:21 Urine Opiates Screen Negative ng/mL (Negative) 05/04/25 18:32 Acetaminophen < 5.0 ug/mL (10-30) L 05/04/25 18:21 Ur Barbiturates Screen Negative ng/mL (Negative) 05/04/25 18:32 Ur Phencyclidine Scrn Negative ng/mL (Negative) 05/04/25 18:32 Ur Amphetamines Screen Negative ng/mL (Negative) 05/04/25 18:32 U Benzodiazepines Scrn Negative ng/mL (Negative) 05/04/25 18:32 Urine Cocaine Screen Negative ng/mL (Negative) 05/04/25 18:32 U Marijuana (THC) Screen Negative ng/mL (Negative) 05/04/25 18:32 Influenza A (PCR) Negative (Negative) 05/04/25 19:24 Influenza Type B (PCR) Negative (Negative) 05/04/25 19:24 RSV (PCR) Negative (Negative) 05/04/25 19:24 SARS-CoV-2 (PCR) Negative (Negative) 05/04/25 19:24 No radiology studies performed this visit EKG Data EKG 1: Interpretation: Normal sinus rhythm, normal axis, QTc 401 Discharge Plan Discharge Patient Disposition: Xfer Psychiatric Hosp Clinical Impression: Suicidal ideation, Unguis incarnatus Condition: Stable Discharge Diet: Usual diet Discharge Activity: Resume usual activity Print Language: Estonian Coding Level of Care Code ED Contour Stitcher for Chg Fwd Documented by User: Trav aSnchez DO 05/04/25 19:43 HPI - Psych 2 General: Chief Complaint: Psychiatric Symptoms Stated Complaint: SI thoughts anxiety shaking Time Seen by Provider: 05/04/25 17:44 Related Data Previous Rx's ?Medication ?Instructions ?Recorded metronidazole 500 mg tablet 500 mg PO Q8H 7 days #21 t abs 02/25/25 sulfamethoxazole 800 1 tab PO BID 5 days #10 tabs 03/27/25 mg-trimethoprim 160 mg tablet (Bactrim DS) Allergies Allergy/AdvReac Type Severity Reaction Status Date / Time aripiprazole (From [facility]) Allergy Mild Unknown Verified 03/27/25 18:53 PFSH ED 2 PFSH: Medical History (Updated 05/04/25 @ 20:40 by DIMAS Liz) Psychiatric care Social History Smoking and tobacco/nicotine status: never used tobacco/nicotine Course 2 Vital Signs: Vital signs: Vital Signs Temperature 99.0 F 05/04/25 17:49 Pulse Rate 121 H 05/04/25 17:49 Respiratory Rate 18 05/04/25 17:49 Blood Pressure 130/81 05/04/25 17:49 Pulse Oximetry 95 05/04/25 17:49 Oxygen Delivery Me thod Room Air 05/04/25 17:49 MDM - Psych Medical Decision Making Patient is a 24-year-old female that comes to the ED with staff from the home where she resides, with hopelessness, wanting to harm herself by cutting herself. She would like a voluntary admission to the psychiatric unit. Routine testing is in range. Will contact Dr. Esposito for admission. This patient was originally seen by Ms. Ernestine PA-C. I agree with her history, evaluation, and management. We do not have psychiatric beds available at our facility currently. Attempting transfer to an appropriate facility at this time. She remains medically stable. Lab Data 05/04/25 18:21 05/04/25 18:21 Radiology Impressions Toe X-Ray 05/04/25 18:04 IMPRESSION: No acute osseous abnormality. Laboratory Results WBC 9.34 10^3/uL (3.29-11.43) 05/04/25 18:21 RBC 4.58 10^6/uL (3.85-5.65) 05/04/25 18:21 Hgb 12.80 g/dL (11.27-16.99) 05/04/25 18:21 Hct 38.4 % (36-47) 05/04/25 18:21 MCV 83.8 fl (85-98) L 05/04/25 18:21 MCH 27.9 pg (27-33) 05/04/25 18:21 MCHC 33.3 g/dL (30-55) 05/04/25 18:21 RDW 13.0 % (12.1-15.1) 05/04/25 18:21 Plt Count 396 10^3/cmm (157-399) 05/04/25 18:21 MPV 8.4 fL (7.4-10.4) 05/04/25 18:21 Neut % (Auto) 63.2 % 05/04/25 18:21 Lymph % (Auto) 27.8 % 05/04/25 18:21 [place] % (Auto) 6.6 % 05/04/25 18:21 Eos % (Auto) 1.7 % 05/04/25 18:21 Baso % (Auto) 0.4 % 05/04/25 18:21 Neut # (Auto) 5.89 10^3/uL (1.8-7.7) 05/04/25 18:21 Lymph # (Auto) 2.6 10^3/uL (0.8-4.8) 05/04/25 18:21 [place] # (Auto) 0.6 10^3/uL (0.2-0.9) 05/04/25 18:21 Eos # (Auto) 0.2 10^3/uL (0.0-0.8) 05/04/25 18:21 Baso # (Auto) 0.0 10^3/uL (0.0-0.1) 05/04/25 18:21 Nucleated RBC % (auto) 0 % 05/04/25 18:21 Nucleated RBCs # 0.0 /100WBC 05/04/25 18:21 Sodium 139 mmol/L (136-145) 05/04/25 18:21 Potassium 3.8 mmol/L (3.5-5.1) 05/04/25 18:21 Chloride 107 mmol/L (98-107) 05/04/25 18:21 Carbon Dioxide 19 mmol/L (22-29) L 05/04/25 18:21 Anion Gap 16.8 (5-19) 05/04/25 18:21 BUN 6 mg/dL (6-20) 05/04/25 18:21 Creatinine 0.4 mg/dL (0.5-0.9) L 05/04/25 18:21 GFR Calculation 194.5 mL/min (90-130) H 05/04/25 18:21 Glucose 116 mg/dL (65-115) H 05/04/25 18:21 Calculated Osmolality 287 mOsm/kg (285-295) 05/04/25 18:21 Calcium 9.4 mg/dL (8.5-10.5) 05/04/25 18:21 Total Bilirubin 0.2 mg/dL (0.15-1.2) 05/04/25 18:21 AST 17 U/L (0-32) 05/04/25 18:21 ALT 17 U/L (0-33) 05/04/25 18:21 Alkaline Phosphatase 68 U/L (35-105) 05/04/25 18:21 Total Protein 7.7 g/dL (6.6-8.7) 05/04/25 18:21 Albumin 4.4 g/dL (3.5-5.2) 05/04/25 18:21 Globulin 3.3 g/dL (1.3-4.6) 05/04/25 18:21 TSH 2.52 uIU/mL (0.27-4.20) 05/04/25 18:21 HCG, Qual Negative (Negative) 05/04/25 18:32 Urine Color Yellow (Yellow) 05/04/25 18:32 Urine Appearance Clear (CLEAR) 05/04/25 18:32 Urine pH 7.0 (5-7) 05/04/25 18:32 Ur Specific [place] 1.005 (1.005-1.030) 05/04/25 18:32 Urine Protein Negative (Negative) 05/04/25 18:32 Urine Glucose (UA) Negative (Normal) 05/04/25 18:32 Urine Ketones Negative (Negative) 05/04/25 18:32 Urine Blood Negative (Negative) 05/04/25 18: Urine Nitrate Negative (Negative) 05/04/25 18: Urine Bilirubin Negative (Negative) 05/04/25 18:32 Urine Urobilinogen 0.2 mg/dL (Negative) 05/04/25 18:32 Ur Leukocyte Esterase Negative (Negative) 05/04/25 18:32 Urine RBC 0-2 /hpf (0-2) 05/04/25 18:32 Urine WBC 0-5 /hpf (0-5) 05/04/25 18:32 Ur Squamous Epith Cells 0-5 /hpf (0-5) 05/04/25 18:32 Amorphous Sediment Not Reportable 05/04/25 18:32 Urine Bacteria None seen /hpf (NONE) 05/04/25 18:32 Hyaline Casts 0-4 /lpf H 05/04/25 18:32 Salicylates < 0.3 mg/dL (3-10) L 05/04/25 18:21 Urine Opiates Screen Negative ng/mL (Negative) 05/04/25 18:32 Acetaminophen < 5.0 ug/mL (10-30) L 05/04/25 18:21 Ur Barbiturates Screen Negative ng/mL (Negative) 05/04/25 18:32 Ur Phencyclidine Scrn Negative ng/mL (Negative) 05/04/25 18:32 Ur Amphetamines Screen Negative ng/mL (Negative) 05/04/25 18:32 U Benzodiazepines Scrn Negative ng/mL (Negative) 05/04/25 18:32 Urine Cocaine Screen Negative ng/mL (Negative) 05/04/25 18:32 U Marijuana (THC) Screen Negative ng/mL (Negative) 05/04/25 18:32 Influenza A (PCR) Negative (Negative) 05/04/25 19:24 Influenza Type B (PCR) Negative (Negative) 05/04/25 19:24 RSV (PCR) Negative (Negative) 05/04/25 19:24 SARS-CoV-2 (PCR) Negative (Negative) 05/04/25 19:24 Discharge Plan Discharge Patient Disposition: Xfer Psychiatric Hosp Clinical Impression: Suicidal ideation, Unguis incarnatus Condition: Stable Discharge Diet: Usual diet Discharge Activity: Resume usual activity Print Language: Estonian Coding Level of Care Code ED Contour Stitcher for Nuzhat Ozuna
--- NOTE | 2025-05-04 18:04 | XRR_ITS ---
PROCEDURE INFORMATION: Exam: XR Left Toe(s) Exam date and time: 05/04/2025 6:29 PM Age: 24 years old Clinical indication: Pain; Toes; Left; Additional info: Big toe redness TECHNIQUE: Imaging protocol: Radiologic exam of the left toes. Views: Minimum 2 views. COMPARISON: No relevant prior studies available. FINDINGS: Bones/joints: Normal. Soft tissues: Normal. XR/XR toe LT min 2V 60122 IMPRESSION: No acute osseous abnormality.
--- NOTE | 2025-05-04 18:24 | ECG_ITS ---
[facility] 2025-[facility]04 Pat Name: Chika Roy Department: Room: Gender: Female Plant Tender: : 2000 Requested By: Deirdre Sinha Order Number: [id number] Myrna MD: Bruce Lugo M.D. Measurements Intervals [place] Rate: 109 P: 40 OR: 172 QRS: 12 QRSD: 81 T: 16 QT: 337 QTc: 454 Interpretive Statements SINUS TACHYCARDIA LOW QRS VOLTAGE IN PRECORDIAL LEADS [QRS DEFLECTION < 1.0 mV IN CHEST LEADS] ABNORMAL RHYTHM ECG No previous ECG available for comparison Electronically Signed On 05-05-2025 15:37:51 RESOURCE MANAGEMENT PLANNER by Bruce Lugo M.D. [email or web address]
[2025-05-04 18:27] LABS: Hematocrit 38.4 % (36-47); Hemoglobin 12.80 g/dL (11.27-16.99); Mean Corpuscular HGB Conc 33.3 g/dL (30-55); Mean Corpuscular Hemoglobin 27.9 pg (27-33); Mean Corpuscular Volume 83.8 fl (85-98); Nucleated Red Blood Cells % 0 %; Platelet Count 396 10^3/cmm (157-399); Red Blood Count 4.58 10^6/uL (3.85-5.65); White Blood Count 9.34 10^3/uL (3.29-11.43)
[2025-05-04 18:44] LABS: Glucose Urine UA Negative (Normal); Nitrate Urine Negative (Negative); Specific Gravity, Urine 1.005 (1.005-1.030)
[2025-05-04 18:46] LABS: HCG Qualitative Urine. Negative (Negative)
[2025-05-04 18:49] LABS: Add Urine Microscopic? YES
[2025-05-04 18:55] LABS: PCP Screen Urine Negative (Negative)
[2025-05-04 18:57] LABS: Acetaminophen < 5.0 ug/mL (10-30); Alanine Aminotransferase 17 U/L (0-33); Albumin Level 4.4 g/dL (3.5-5.2); Alkaline Phosphatase 68 U/L (35-105); Anion Gap 16.8 (5-19); Aspartate Amino Transferase 17 U/L (0-32); Blood Urea Nitrogen 6 mg/dL (6-20); Calcium 9.4 mg/dL (8.5-10.5); Carbon Dioxide 19 mmol/L (22-29); Chloride 107 mmol/L (98-107); Globulin 3.3 g/dL (1.3-4.6); Glucose 116 mg/dL (65-115); Osmolality Calculated 287 mOsm/kg (285-295); Potassium 3.8 mmol/L (3.5-5.1); Salicylate < 0.3 mg/dL (3-10); Sodium 139 mmol/L (136-145); Total Protein 7.7 g/dL (6.6-8.7)
[2025-05-04 18:58] LABS: Thyroid Stimulating Hormone 2.52 uIU/mL (0.27-4.20)
[2025-05-04 20:11] LABS: Respiratory Syncytial Virus Ce NEGATIVE (Negative); SARS-CoV-2 PCR NEGATIVE (Negative)
--- NOTE | 2025-05-04 21:01 | PC.NURSE ---
Pt resting quietly in bed with eyes closed. RR even and unlabored.
--- NOTE | 2025-05-05 01:01 | PC.NURSE ---
PT is resting in bed quietly with eyes closed. RR even and unlabored.
== END 2025-05-05 02:35 ==
PROVIDERS: Emergency Provider Physician Assistant
DX: R45.851 Suicidal ideations (principal); Z11.52 Encounter for screening for COVID-19; L60.0 Ingrowing nail
CPT/HCPCS: 36415; 73660; 80053; 80306; 80307; 81001; 81025; 84443; 85025; 87637; 93005; 99285; J9999

== ENCOUNTER 2025-06-05 20:18 | Emergency (ER) | payer MEDICAID, SELFPAY ==
--- OUTSIDE RECORDS SUMMARY | 2025-05-08 03:00 | XMS_ITS ---
Author Organization [facility] Address [address] [place] [address] Care Team Providers Care Clinical Support Nurse Name Role Phone Winter Malone Primary Care Provider Arsen Zhou Unavailable [phone] WINTER MALONE Unavailable Unavailable Encounters Encounter Location Date Provider Diagnosis [facility] Office [address] [facility] [address] [place] [address] 05/08/2025 Winter Malone Plan Of Treatment Next Appt Details Provider Name:Winter alvarez, 08/15/2025 07:00:00 AM, [address], [place], [address], Progress Notes * CHALINO SHAHEDOB:[birth year] (24 yo F)Acc No.[id number]:05/08/2025 Progress Notes Patient: CHALINO RDZE Provider: Jessica Malone APRN :2000 A ge:24 Y S ex:Female Date:05/08/2025 Address:[address] [place], [place] [address]MARK [phone] Care Plan Details* * Electronic signature of David Malone APN on 06/05/2025 at 08:31 PM FILTERER Sign off status: Pending * Provider: Jessica Malone APRN Date: 07/09/2024 Generated for Adilia ventura/Gertrudis/Carol on: 08:31 PM FILTERER
[2025-06-05 20:22] VITALS: BP 151/99; PULSE 107; RESP 18; TEMP 36.8; O2SAT 96; BMI 39.1
[2025-06-05 20:27] VITALS: BP 151/99; PULSE 107; RESP 18; TEMP 36.8; O2SAT 96
--- OUTSIDE RECORDS SUMMARY | 2025-06-05 20:32 | XMS_ITS | Patient Health Record ---
Author Organization [facility] Address [address] [place] [address] Care Team Providers Care Retail Analytics Manager Name Role Phone Winter Malone Primary Care Provider [phone] Didier Coronel Unavailable WINTER MALONE Unavailable Unavailable Bertha Roy Unavailable [phone] Allergies Allergen (clinical drug ingredient) Drug/Non Drug Allergy documented on EMR Reaction Allergy Type Onset Date Status aripiprazole Abilify Unknown Drug Allergy Acti ve Lactose Intolerance Unknown Allergy Active Results Component Value Reference Range Flag Notes UA Without Micro-[place], [place] - [address] Reviewed date:05/17/2025 03:09:55 PM Interpretation: Performing Lab: Notes/Report: Color yellow Clarity clear Glucose negative Bili negative Ketones negative Sp Anza 1.010 Blood negative pH 6.0 Protein negative Urobili negative Nitrites negativen Leukocytes negative Thyroid Stimulating Hormone (TSH) 57146 Reviewed date:03/16/2025 08:49:35 AM Interpretation: Performing Lab: Notes/Report: Diagnosis Description: Hypothyroidism, unspecified TSH .924 .358-3.740 MlU/ML [place] (B) [address] Reviewed date:03/16/2025 08:50:23 AM Interpretation: Performing Lab: Notes/Report: Diagnosis Description: Other intermediate card tender (current) drug therapy [place] .43 .60-1.20 MMOL/L LOW A value o f greater than 1.50 is considered critical 12 hrs after dose. Lipid Panel Reflex DLDL 8004 7, 43051 Reviewed date:03/16/2025 08:50:04 AM Interpretation: Performing Lab: Notes/Report: Diagnosis Description: Other correction (current) drug therapy Trig 357 NA Classification [...] >400 mg/dl. See DLDL result. Hemoglobin A1c 29585 Reviewed date:03/16/2025 08:49:57 AM Interpretation: Performing Lab: Notes/Report: Diagnosis Description: Other correction (current) drug therapy Hgb A1c 4.7 3.8-6.4 % Interpretation Of Hgb A1c: 4.5-6.2 % nondiabetics. >7.0 % diabetics. EAG 88 NA Estimated Aver age Glucose(EAG). Comprehensive Metabolic Pane l ([facility]) [address] Reviewed date:03/16/2025 08:50:29 AM Interpretation: Performing Lab: Notes/Report: Diagnosis Description: Other intermediate card tender (current) drug therapy Glucose Serum 59 71-110 MG/DL LOW Testing p erformed at [facility], [address] [place] [address] [place] [address]. CLIA ID#: [id number] BUN 6 7-21 MG/DL LOW Creat .43 .51-1.17 MG/DL LOW R-bdattw-b-benzoquinone imine (NAPQI) is a metabolite of acetaminophen, [...] 283 280-300 MOSM/KG CBC w\ Auto Diff 53964 Reviewed date:03/16/2025 08:50:12 AM Interpretation: Performing Lab: Notes/Report: Diagnosis Description: Other correction (current) drug therapy WBC 8.4 4.5-11.0 X10'3 RBC 5.06 4.00-5.20 X10'6 Hgb 14.1 12.0-16.0 G/DL Hct 43.5 36.0-46.0 % MCV 86.0 80.0-100.0 FL MCH 27.9 27.0-31.0 PG MCHC 32.4 31.0-37.0 G/DL Platelet 431 150-400 X10'3 HI RDW-SD 42.1 35.0-49.0 FL RDW-CV 13.5 12.2-15.6 % MPV 8.9 9.2-12.0 FL LOW Neutro Auto% 67.9 40.0-70.0 % Lymph Auto% 22.0 22.0-44.0 % [place] Auto% 7.1 3.0-7.0 % HI Eos Auto% 2.0 2.0-4.0 % Baso Auto% 0.5 0.0-1.0 % Imm Gran% .5 .0-.4 % HI Neutro Abs 5.70 .80-7.70 Absolute Neutrophil Count 5700 NA Lymph Abs 1.85 .10-4.10 [place] Abs .60 .20-1.00 Eos Abs .17 .00-.40 Baso Abs .04 .00-.20 Imm Gran Abs .04 .00-.10 NRBC# .00 .00-.20 X10'3 NRBC% .00 .00-.20 /100 int act WBC's Reason For Referral Reason Hematochezia Diagnosis 1 GERD (gastroesophage al reflux disease) (K21.9) Referring Provider First Name Winter Referring Provider Last Name Kira Referring Provider Speciality Nurse Pavel shell Referred Organization [facility] Referred Provider Diider Coronel Referred Address [address] [place] [phone], Referral Priority Routine Reason Hematochezia Diagnosis 1 Hematochezia (K92.1) Referral Organization [facility] [place] [facility] Referring Provider First Name Winter Referring Provider Last Name Kira Referring Provider Speciality Nurse Pavel shell Referred Provider DIDIER CORONEL Referred Provider Specialty Internal Med icine General Notes Fransisca Quiñones 04/26 11:41:25 AM [employer] > faxed Referral Priority Routine Medications Medication SIG (Take, Route, Frequency, Duration) Notes Start Date End Date Status QUEtiapine Fumarate 200 MG Tablet 1 tablet Orally Once a day; Duration: 30 days Active Docusate Sodium 100 MG Capsule 1 capsule as needed Orally Once a day; Duration: 30 days Active Dulcolax 5 MG Tablet Delayed Release 1 tablet as needed Orally Once a day; Duration: 30 day(s) 05/15/2025 06/14/2025 Active traZODone HCl 50 MG Tablet 1 tablet at bedtime as needed Orally Once a day; Duration: 30 days Active Pantoprazole Sodium 40 MG Tablet Delayed Release 1 tablet 1/2 to 1 hour before morning meal Orally Once a day; Duration: 30 days Active hydrOXYzine HCl 50 MG Tablet 1 tablet at bedtime as needed Orally Once a day Active Probiotic 1-250 BILLION-MG Capsule as directed Orally; Duration: 30 days can be OTC 04/24/2025 08/22/2025 Not-Taking Polyethylene Glycol 3350 17 GM/SCOOP Powder 1 scoop Orally twice a day; Duration: 30 days Active Bacitracin 500 UNIT/GM Ointment 1 application to sore toe Externally twice a day till clear; Duration: 30 days 05/04/2025 07/03/2025 Not-Taking OLANZapine 10 MG Tablet 1 tablet Orally 4 times a day as needed for severe agitation; Duration: 30 days Active Famotidine 20 MG Tablet 1 tablet at bedt maximilian as needed Orally Once a day; Duration: 30 days Active Milk of Magnesia 1200 MG/15ML Suspension 30 ml Orally daily as needed for constipation; Duration: 30 days Active Triple Antibiotic 3.5-400-67698 Ointment 1 application into the lower eyelid of affected eye Ophthalmic every 4 hrs Active [place] Carbonate 300 MG Tablet 2 tablets Orally twice a day; Duration: 30 days Active Ondansetron 4 MG Tablet Disintegrating 1 tablet on the tongue and allow to dissolve Orally every 6 hrs as needed 05/09/2025 Not-Taking Zolpidem Tartrate 5 MG Tablet 1 tablet at bedtime as needed for insomnia Orally Once a day Active Ketoconazole 2 % Cream 1 application Externally daily as needed for rash; Duration: 30 days Active Ibuprofen 400 MG Tablet 1 tablet with fo od or milk as needed Orally Three times a day; Duration: 30 days Active Haloperidol 10 MG Tablet 1 tablet Orally 3 times a day with meals; Duration: 30 days Active Ex-Lax 15 MG Tablet Chewable 1 tablet as needed Orally Once a day; Duration: 30 days Active Levothyroxine Sodium 75 MCG Tablet 1 tablet in the morning on an empty stomach Orally Once a day; Duration: 30 days Active Tums 500 MG Tablet Chewable 2 tablets Orally Once a day as needed for heartburn; Duration: 30 days Active Daily-Kristen - Tablet 1 tablet Orally Once a day; Duration: 30 days Active Baclofen 5 MG Tablet 1 tablet as needed Orally Twice a day as needed for pain; Duration: 30 days Active Cetirizine HCl 10 MG Tablet 1 tablet Orally Once a day; Duration: 30 days Active Diclofenac Sodium 1 % Gel 2-4 grams to a ffected areas Externally every 6 hours as needed for pain; Duration: 30 days Active Fluticasone Propionate 50 MCG/ACT Suspension 1 spray in each nostril Nasally Twice a day; Duration: 30 days Active Deep Sea Nasal [place] 0.65 % Solution as directed Nasally as needed for nasal dryness or allergies; Duration: 30 days Active Triamcinolone Acetonide 0.1 % Cream 1 application Externally twice a day; Duration: 30 days Active Acetaminophen 500 MG Tablet 1 tablet as needed Orally every 4 hours; Duration: 30 days Active Linzess 145 MCG Capsule [address] 30 minutes before the first meal of the day on an empty stomach Orally Once a day; Duration: 30 days Active Benztropine Mesylate 1 MG Tablet 1 tablet Orally twice a day for EPS; Duration: 30 days Active Immunizations Vaccine Route Administration Date Status Comme nts Flucelvax Trivalent, Syringe 0.5 mL, PF IM Intramuscular 04/18/2025 Administered Patient tolerat ed well. Social History Tobacco Use: Social History Observation Description Date Details (start date - stop date) Never Smoker NA - NA Social History Depression Screening Social Info Question Answer Notes depression screening findings Findings Negative (0 -4) 05/15/25 PHQ-9 Little interest or p steve in doing things Not at all Feeling down, depressed, or [...] way Not at all Total Score 0 Comprehensive Health Assessm ent Social Info Question Answer Notes *Social Determinants of Health Has lack of transportation kept you from medical appointments, meetings, work or from getting things needed for daily living? No Recently, have you worried t hat your food would run out before you got money to buy more? No Do you feel physically and emotionally safe wher e you currently live? Yes Are you worried about losing your housing? No Have you recently been arslan rned that your utilities would be turned off (electricity, gas, or water)? No Drug/Alcohol: Social Info Question Answer Notes AUDIT-C (Standard) Did you have a drink containing alcohol in the past year? No Points 0 Interpretation Negative Tobacco Use: Social Info Question Answer Notes Tobacco Control (Standard) Tobacco use: Nonsmoker Section Notes: CIME Dep/tob - 05/15/25 CIME Dep/tob - 05/15/25 Problems Problem Type SNOMED Code ICD Code Onset Dates Problem Status W/U Status Risk Notes Problem Oppositional defiant disorder (27089406) Oppositional defiant disorder (F91.3) Active confirmed Problem Anxiety (64589325) Anxiety (F41.9) Active confi rmed Problem Hematochezia (007476224) Hematochezia (K92.1) Active confirmed Problem Bipolar 1 disorder (282267222) Bipolar 1 disorder (F31.9) Active confirmed Problem Posttraumatic stress disorder (16574628) Post traumatic stress disorder (PTSD) (F43.10) Active confirmed Problem Insomnia (582711375) Insomnia (G47.00) Active confirmed Problem Attention deficit hyperactivity disorder (402250990) ADHD (attention deficit hyperactivity disorder) (F90.9) Active confirmed Problem Constipation (10440330) Constipation (K59.00) Active confirmed Problem Acquired hypothyroidism (939218163) Acquired hypothyroidism (E03.9) Active confirmed Problem Pervasive developmental disorder (disorder) (76655413) Autism disorder (F84.0) Active confirmed Problem Nausea and vomiting (77508202) Nausea & vomiting (R11.2) Active confirmed Problem Seasonal allergy (494109211) Seasonal allergies (J30.2) Active confirmed Problem Gastroesophageal reflux disease (150012301) GERD (gastroesophageal reflux disease) (K21.9) Active confirmed Problem Intellectual disability (809348848) Intellectual disability (F79) Active confirmed Problem Major depression, single episode (37380026) Major depressive episode (F32.9) Active confirmed Vital Signs Heart Rate 94 /min 05/17/2025 Temperature 98.1 degrees Fahrenheit 05/17/2025 Respiratory Rate 20 /min 05/17/2025 Height-cm 170.18 cm 05/17/2025 Oximetry 99 % 05/17/2025 Blood pressure diastolic 74 mm Hg 05/17/2025 Weight-kg 120.66 kg 05/17/2025 Height 67 in 05/17/2025 Blood pressure systolic 122 mm Hg 05/17/2025 Weight 266 lbs 05/17/2025 BMI 41.66 kg/m2 05/17/2025 Encounters Encounter Location Date Provider Diagnosis [facility] [address] [address] 05/17/2025 Winter Malone Acquired hypothyroidism E03.9 ; Bipolar 1 disorder F31.9 ; Intellectual disability F79 ; Autism disorder F84.0 ; Post traumatic stress disorder (PTSD) F43.10 ; ADHD (attention deficit hyperactivity disorder) F90.9 ; Oppositional defiant disorder F91.3 ; GERD (gastroesophageal reflux disease) K21.9 and Urinary frequency R35.0 [facility] [address] [address] 05/09/2025 Winter Malone Paronychia of great toe, left L03.032 and Daily nausea R11.0 [facility] [address] [address] 04/26/2025 Winter Malone H/O hemorrhoids Z87. 19 ; Hematochezia K92.1 and Hard stool R19.5 [facility] [address] [address] 03/06/2025 Winter Malone Acquired hypothyroidism E03.9 ; Bipolar 1 disorder F31.9 ; Intellectual disability F79 ; Autism disorder F84.0 ; Post traumatic stress disorder (PTSD) F43.10 ; ADHD (attention deficit hyperactivity disorder) F90.9 ; Oppositional defiant disorder F91.3 ; GERD (gastroesophageal reflux disease) K21.9 ; Seasonal allergies J30.2 ; Constipation K59.00 ; High risk medication use Z79.899 and Depression screen Z13.31 [facility] [address] [facility] [address] [place] [address] 05/15/2025 Didier Coronel Hematochezia K92.1 ; Nausea & vomiting R11.2 ; Constipation K59.00 and Depression screen Z13.31 [facility] [address] [facility] [place] [address] 04/18/2025 Winter Malone Encounter for immunization Z23 and Encounter for administration of vaccine Z23 [facility] [address] [facility] [address] [place] [address] 05/04/2025 Bertha Roy Paronychia of great toe L03.039 [facility] [address] [facility] [address] [place] [address] 04/24/2025 Winter [facility] [address] [facility] [place] [address] 03/06/2025 Winter [facility] [address] [facility] [address] [place] [address] 05/15/2025 Winter Malone Assessments Encounter Date Diagnosis (ICD Code) Assessment Notes Treatment Notes Treatment Clinical Notes Section Notes 03/06/2025 Bipolar 1 disorder (ICD-10 - F31.9) Stable, waiting for apt with [facility]. 03/06/2025 Acquired hypothyroidism (ICD-10 - E03.9) 04/18/2025 Encounter for immunization (ICD-10 - Z23) Immunization supplied by [facility]. 05/04/2025 Paronychia of great toe (ICD-10 - L03.039) cephalexin bacitracin 05/09/2025 Paronychia of great toe, left (ICD-10 - L03.032) Recheck in 2 weeks. Questions asked and answered; discharged to home. 05/09/2025 Daily nausea (ICD-10 - R11.0) Discuss with Dr. Coronel at apt on 05-15. 04/26/2025 Hematochezia (ICD-10 - K92.1) 04/26/2025 H/O hemorrhoids (ICD-10 - Z87.19) 05/17/2025 Bipolar 1 disorder (ICD-10 - F31.9) Stable, keep apt with [facility]. 05/17/2025 Acquired hypothyroidism (ICD-10 - E03.9) Recheck with lab in August. Questions asked and answered; discharged to home. 05/15/2025 Hematochezia (ICD-10 - K92.1) -x- to be completed at [facility] - -to be completed at [facility] - -to be completed at [facility] - -to be completed at [facility] 05/15/2025 Nausea & vomiting (ICD-10 - R11.2) -x- to be completed at [facility] - -to be completed at [facility] - -to be completed at [facility] - -to be completed at [facility] 05/17/2025 Intellectual disability (ICD-10 - F79) Stable, keep apt with [facility]. 05/15/2025 Constipation (ICD-10 - K59.00) 04/26/2025 Hard stool (ICD-10 - R19.5) Start stool softner once daily for hard stools. 04/18/2025 Encounter for administration of vaccine (ICD-10 - Z23) 03/06/2025 Intellectual disability (ICD-10 - F79) Stable, waiting for apt with [facility]. 03/06/2025 Autism disorder (ICD-10 - F84.0) Stable, waiting for apt with [facility]. 05/15/2025 Depression screen (ICD-10 - Z13.31) 05/17/2025 Autism disorder (ICD-10 - F84.0) Stable, keep apt with [facility]. 05/17/2025 Post traumatic stress disorder (PTSD) (ICD-10 - F43.10) Stable, keep apt with [facility]. 03/06/2025 Post traumatic stress disorder (PTSD) (ICD-10 - F43.10) Stable, waiting for apt with [facility]. 03/06/2025 ADHD (attention deficit hyperactivity disorder) (ICD-10 - F90.9) Stable, waiting for apt with [facility]. 05/17/2025 ADHD (attention deficit hyperactivity disorder) (ICD-10 - F90.9) Stable, keep apt with [facility]. 03/06/2025 Oppositional defiant disorder (ICD-10 - F91.3) Stable, waiting for apt with [facility]. 05/17/2025 Oppositional defiant disorder (ICD-10 - F91.3) Stable, keep apt with [facility]. 03/06/2025 GERD (gastroesophageal reflux disease) (ICD-10 - K21.9) Stable. 05/17/2025 GERD (gastroesophageal reflux disease) (ICD-10 - K21.9) She has seen Dr. Coronel, he is planning on doing endoscopy soon. 05/17/2025 Urinary frequency (ICD-10 - R35.0) 03/06/2025 Seasonal allergies (ICD-10 - J30.2) Continue [...] answered; discharged to home. Plan Of Treatment Pending Test Test Name Order Date Diagnostic Colonoscopy-[id number] 05/15/2025 EGD, Upper GI Diagnostic-54654 Next Appt Details Provider Name:Winter alvarez, 08/15/2025 07:00:00 AM, [address] [place] [address], [place], [address], Insurance Providers Payer Name Payer Address Payer Phone Subscriber Number Group Number Insured Name Patient Relationship to Insured Coverage Start Date Coverage End Date [place] Medicaid [address] [place] [address] [id number] SRIRAM SHAH Self - patient is the insured [facility] Medicaid Replacement [address] [place] [address] [id number] UMSTEAD, SRIRAM Self - patient is the insured Medical (General) History Medical History History ICD Code Anxiety Thyroid disease Surgical History Surgery Date(Month/Year) cholecystectomy 01/07/2025
--- OUTSIDE RECORDS SUMMARY | 2025-06-05 20:32 | XMS_ITS | Patient Health Record ---
Author Organization [facility] Address [address] [place] [address] Care Team Providers Care Vessel Crew Member Name Role Phone PCP, LAPSED Primary Care Provider Unavailabl e Reason For Referral No Information Medications Medication SIG (Take, Route, Fr equency, Duration) Notes Start Date End Date Status [place] Carbonate Ac tive MiraLax Active Omeprazole Active CeleXA Active ChlorproMAZINE Activ e Depo-Provera Active Flonase Active Intuniv Active Levothyroxine Sodium Active Linzess Active Plan Of Treatment No Information Insurance Providers Payer Name Payer Address Payer Phone Subscriber Number Group Number Insured Name Patient Relationship to Insured Coverage Start Date Coverage End Date [place] [address] [place] [address] [phone] [id number] Chika Roy Self - patient is the insured
--- NOTE | 2025-06-05 20:33 | ED_ITS ---
HPI - Female Genitourinary General: Chief complaint: Urogenital-Female Stated complaint: Pain in Vagina and hurts when she pee's Time Seen by Provider: 06/05/25 20:19 History of Present Illness: 24-year-old female, resident of [facility], presents with a chief complaint of dysuria since Wednesday. She states dysuria is getting more intense, it is associated with increased frequency. Patient has not had a fever and denies chills and shakes. Patient denies shortness of breath or chest pain. Patient denies abdominal pain, back pain or flank pain. Patient is not sexually active, states she never has been. She has irregular menstrual cycles and is on control. She denies possibility of . No abnormal vaginal discharge, bleeding, pelvic pain. Patient has issues with constipation, no significant change in bowel habits. Date of Last Menstrual Period: 06/01/25 Related Data Previous Rx's ?Medication ?Instructions ?Recorded metronidazole 500 mg tablet 500 mg PO Q8H 7 days #21 t abs 02/25/25 sulfamethoxazole 800 1 tab PO BID 5 days #10 tabs 03/27/25 mg-trimethoprim 160 mg tablet (Bactrim DS) nitrofurantoin 100 mg PO BID 5 days #10 cap s 06/05/25 monohydrate/macrocrystals 100 mg capsule (Macrobid) Allergies Allergy/AdvReac Type Severity Reaction Status Date / Time aripiprazole (From [facility]) Allergy Mild Unknown Verified 03/27/25 18:53 [facility] ED PFSH: Medical History (Updated 06/05/25 @ 21:33 by Denisa Polk MD) Psychiatric care Social History Smoking and tobacco/nicotine status: never used tobacco/nicotine Female Reproductive History: Date of last menstrual period: 06/01/25 Physical Exam Narrative: EXAM NARRATIVE: Vital signs were reviewed. Patient is alert and oriented. Patient is breathing comfortably, no increased WOB or accessory muscle use. SpO2 is above 95% on RA. Patient has clear lungs b/l, no rhonchi, wheezing or crackles. No hypotension. +Mild tachycardia. Abdomen is soft, nondistended and nontender. No CVA tenderness with percussion of the flanks. Patient is moving all extremities, no deformity or gross injury. No lower extremity edema or asymmetry. Course Vital Signs: Vital signs: Vital Signs Temperature 98.3 F 06/05/25 20:27 Pulse Rate 103 H 06/05/25 21:14 Respiratory Rate 18 06/05/25 20:27 Blood Pressure 118/91 06/05/25 21:14 Pulse Oximetry 97 06/05/25 21:14 Oxygen Delivery Me thod Room Air 06/05/25 21:14 MDM - Female Medical Decision Making 24-year-old female presents with a chief complaint of dysuria and increased ur inary frequency since Wednesday. Differential diagnosis includes but is limited to, bladder infection, pyelonephritis, nephrolithiasis, STI, other. On exam she is medically stable. Patient has a benign abdomen and has no pain with percussion of the flanks. She was evaluate the UA, screen and chlamydia, gonorrhea and trichomonas screen. Treated w/PO tylenol and macrobid. UA is not convincing for infection but sx are consistent w/cystitis, will treat w/macrobid while awaiting STI screening. She is not . Patient is appropriate for discharge and outpatient management. Patient was counseled on supportive care at home, given return precautions and discharged in stable condition with recommendation for outpatient follow-up with primary care nurse or doctor. Lab Data Laboratory Results HCG, Qual Negative (Negative) 06/05/25 20: Urine Color Yellow (Yellow) 06/05/25: Urine Appearance Clear (CLEAR) 06/05/25 20: Urine pH 7.0 (5-7) 06/05/25: Ur Specific [place] 1.008 (1.005-1.030) 06/05/25 20: Urine Protein Negative (Negative) 06/05/25 20: Urine Glucose (UA) Negative (Normal) 06/05/25 20: Urine Ketones Negative (Negative) 06/05/25 20: Urine Blood Negative (Negative) 06/05/25: Urine Nitrate Negative (Negative) 06/05/25: Urine Bilirubin Negative (Negative) 06/05/25 20: Urine Urobilinogen 0.2 mg/dL (Negative) 06/05/25 20:34 Ur Leukocyte Esterase Negative (Negative) 06/05/25 20: Urine RBC 0-2 /hpf (0-2) 06/05/25 20:34 Urine WBC 0-5 /hpf (0-5) 06/05/25 20:34 Ur Squamous Epith Cells 0-5 /hpf (0-5) 06/05/25 20:34 Amorphous Sediment Not Reportable 06/05/25 20:34 Urine Bacteria None seen /hpf (NONE) 06/05/25 20:34 Hyaline Casts 1.21 /lpf 06/05/25 20:34 No radiology studies performed this visit Discharge Plan Discharge Patient Disposition: Home Clinical Impression: Cystitis Condition: Stable Prescriptions: New nitrofurantoin monohyd/m-cryst [Macrobid] 100 mg capsule 100 mg PO BID 5 Days Qty: 10 0RF Rx Instructions: must administer with a meal/food No Action metronidazole 500 mg tablet 500 mg PO Q8H 7 Days Qty: 21 0RF sulfamethoxazole-trimethoprim [Bactrim DS] 800-160 mg tablet 1 tab PO BID 5 Days Qty: 10 0RF Discharge Orders: Discharge ED (Routine); Ordered 06/05/25 Ordered By: Denisa Polk Patient Instructions: Opioid Safety, Pain Management, Patient Portal & Arlin Instructions, Urinary Tract Infection - Women Activity Restrictions/Additional Instructions: Please continue to monitor your condition closely at home. Take Ibuprofen 400mg and Tylenol 500-1000mg every six hours for pain and inflammation. Start your a ntibiotics as prescribed. You may also get relief from over the counter Azo. Stay hydrated; drink plenty of fluids. If your condition worsens or additional concerns arise, please return promptly to the emergency department for reassessment. Follow up with your primary care doctor in one week. Print Language: Uzbek Coding Level of Care Code ED Continuous Miner Operator for Nuzhat Ozuna
[2025-06-05] MEDS: nitrofurantoin SR (BID) 100 mg Capsule PO (20:44)
[2025-06-05 20:58] LABS: Glucose Urine UA Negative (Normal); Nitrate Urine Negative (Negative); Specific Gravity, Urine 1.008 (1.005-1.030)
[2025-06-05 21:01] LABS: Add Urine Microscopic? YES
[2025-06-05 21:14] VITALS: BP 118/91; PULSE 103; O2SAT 97
[2025-06-05 21:30] LABS: HCG Qualitative Urine. Negative (Negative)
[2025-06-05 21:43] VITALS: BP 123/91; PULSE 89; O2SAT 98
[2025-06-05 22:33] LABS: Trichomonas vaginalis (PCR) NOT DETECTED (Negative)
[2025-06-05 22:56] LABS: Neisseria Gonorrhea NOT DETECTED (Negative)
== END 2025-06-05 21:44 | disposition home or self-care (01) ==
PROVIDERS: Emergency Provider Emergency Medicine
DX: N30.90 Cystitis, unspecified without hematuria (principal)
CPT/HCPCS: 81001; 81025; 87491; 87591; 87661; 99283; J9999